=== PATIENT | male | born 1940 | race Caucasian/White ===

== ENCOUNTER 2018-03-28 09:27 | Emergency (ER) | payer OTHER ==
[~2018-03-28] VITALS: Ht 182.9 cm; Wt 77.1 kg
[2018-03-28] MEDS ORDERED: SODIUM CHLORIDE 0.9% 1,000 ML IV ONE (09:53)
[2018-03-28 11:01] LABS: Albumin 3.2 g/dL (3.4-5.0); Anion Gap 5 (5-15); Blood Urea Nitrogen 17 mg/dL (7-18); Calcium 9.2 mg/dL (8.5-10.1); Carbon Dioxide 17 mmol/L (21-32); Chloride 113 mmol/L (98-107); Glucose 98 mg/dL (74-106); Potassium 4.6 mmol/L (3.5-5.1); Sodium 135 mmol/L (136-145)
[2018-03-28 11:07] LABS: Alanine Aminotransferase 36 U/L (16-61); Alkaline Phosphatase 340 U/L (45-117); Aspartate Aminotransferase 67 U/L (15-37); BUN/Creatinine Ratio 12.4; Bilirubin, Total 0.4 mg/dL (0.2-1.0); GFR African American 65 mL/min; GFR Non-African American 53 mL/min; Total Protein 8.3 g/dL (6.4-8.2)
[2018-03-28 11:59] LABS: Basophils # (auto) 0 uL; Basophils % (auto) 0.6 % (0.0-2.0); Eosinophils # (auto) 0 uL; Eosinophils % (auto) 0.5 % (0.0-7.0); Hematocrit 35.1 % (41.0-53.0); Hemoglobin 10.9 g/dL (13.5-17.5); Lymphocytes # (auto) 0.6 uL; Lymphocytes % (auto) 11.1 % (10.0-50.0); Mean Corpuscular Hemoglobin 28.4 pg (28.0-32.0); Mean Corpuscular Hgb Conc. 31.2 g/dL (32.0-36.0); Mean Corpuscular Volume 91.1 fL (80.0-100.0); Monocytes # (auto) 0.3 uL; Monocytes % (auto) 6.4 % (0.0-12.0); Neutrophils # (auto) 4.2 uL; Neutrophils % (auto) 81.4 % (37.0-80.0); Nucleated Red Blood Cells % 0.1 %; Platelet Count (auto) 306 10^3/uL (140-450); Red Blood Cells 3.85 10^6/uL (4.5-5.90); White Blood Cell 5.1 10^3/uL (4.4-10.8)
[2018-03-28 12:13] LABS: INR 0.99 (0.9-1.15); Partial Thromboplastin Time 29.1 sec (23.78-33.04); Prothrombin Time 10.6 sec (9.27-12.13)
[2018-03-28 13:41] LABS: Urine Bacteria NONE SEEN /hpf (None Seen); Urine Blood Negative /uL (Negative); Urine Specific Gravity 1.016 (1.001-1.035); Urine WBC <1 /hpf (0 - 3)
[2018-03-28] MEDS ORDERED: LEVETIRACETAM INJ 1,000 MG in D5W 5% 100 ML IV ONE (15:30)
[2018-03-28] MEDS ORDERED: cefTRIAXone 1GM/50ML D5W 50 ML IV ONE (15:30)
[2018-03-28] MEDS ORDERED: DEXAMETHASONE INJECTION 10 MG in D5W 5% 50 ML IV ONE (23:30)
[2018-03-28] MEDS ORDERED: DEXAMETHASONE SOD PHOS 10MG/1ML VIAL INJ ONE (23:39)
[2018-03-29 00:07] VITALS: BP 134/84
== END 2018-03-29 00:13 | disposition home or self-care (01) ==
LOC: EDBD 09:27 → ER 09:30
DX: C79.31 Secondary malignant neoplasm of brain (principal); G40.909 Epilepsy, unspecified, not intractable, without status epilepticus; N39.0 Urinary tract infection, site not specified; E46 Unspecified protein-calorie malnutrition; E11.9 Type 2 diabetes mellitus without complications; Z68.23 Body mass index [BMI] 23.0-23.9, adult; Z85.038 Personal history of other malignant neoplasm of large intestine
CPT/HCPCS: 36415; 70450; 71046; 80053; 81001; 83735; 83880; 84443; 84484; 85025; 85610; 85730; 87086; 93005; 94761; 96361; 96365; 96367; 96368; 99285; J0696; J1100; J1953; J7030; J7060